=== PATIENT | male | born 1990 | race Caucasian/White ===

== ENCOUNTER 2022-09-02 00:08 | Emergency (ER) | payer OTHER ==
[2022-09-02] MEDS ORDERED: Elimite CREAM TP ONE ×2 (00:23→00:45)
[2022-09-02] MEDS ORDERED: BENADRYL 50 MG/ML IM ONE (00:23)
[2022-09-02 00:28] VITALS: BP 162/88; PULSE 65; O2SAT 98
--- NOTE | 2022-09-02 00:30 | ERPHSYRPT ---
- History of Present Illness Time Seen by Provider: 09/02/22 00:25 Source: patient Exam Limitations: no limitations Physician History: Patient is a 32-year-old white male recently released apparently today from correction in [facility] where he was being treated for scabies. He apparently was on permethrin and ivermectin. He also received Benadryl and steroids for the itching. He was informed that we could probably give him permethrin and Benadryl but we did not have ivermectin in the hospital. We will also give him some prednisone for symptomatic relief. Timing/Duration: day(s) (Several days while in correction. ) Quality: itchy Severity: severe Location: torso, hands, extremities Possible Causes: other (Suspected scabies) Modifying Factors: Improves With: antihistamine, scratching - Review of Systems Constitutional: No Fever, No Chills Eyes: No Symptoms Ears, Nose, & Throat: No Symptoms Respiratory: No Cough, No Dyspnea Cardiac: No Chest Pain, No Edema, No Syncope Abdominal/Gastrointestinal: No Abdominal Pain, No Nausea, No Vomiting, No Diarrhea Genitourinary Symptoms: No Dysuria Musculoskeletal: No Back Pain, No Neck Pain Skin: Pruritis, Skin Lesions, No Rash Neurological: No Dizziness, No Focal Weakness, No Sensory Changes Psychological: No Symptoms Endocrine: No Symptoms All Other Systems: Reviewed and Negative - Physical Exam General Appearance: mild distress Eye Exam: PERRL/EOMI, eyes nml inspection Ears, Nose, Throat Exam: normal ENT inspection, pharynx normal, moist mucous membranes Neck Exam: normal inspection, non-tender, supple, full range of motion Respiratory Exam: normal breath sounds, lungs clear, No respiratory distress Cardiovascular Exam: regular rate/rhythm, normal heart sounds Gastrointestinal/Abdomen Exam: soft, mass, No tenderness Back Exam: rash Extremity Exam: other (Rash) Neurologic Exam: alert, oriented x 3, cooperative, normal mood/affect, sensation nml, No motor deficits Skin Exam: rash, abrasion, other (Excoriations) SpO2 Interpretation: normal O2 Delivery: Room Air - Course Nursing assessment & vital signs reviewed: Yes - Progress Progress: unchanged - Departure Departure Disposition: Home Clinical Impression: Scabies Condition: Stable Critical Care Time: No Referrals: FORREST COSME MD [Primary Care Provider] - Follow up/PCP as directed Instructions: Scabies (DC) Prescriptions: Permethrin Cream [Elimite CREAM] 60 gm TP DIRECTIONS UNKNOWN #1 tu Ivermectin 3 mg PO DAILY #5 tablet
[2022-09-02] MEDS ORDERED: BENADRYL 50 MG/ML ONE (00:34)
[2022-09-02] MEDS ORDERED: DELTASONE 20 MG ONE (00:39)
[2022-09-02] MEDS ORDERED: DELTASONE 20 MG PO SCH (10:00)
== END 2022-09-02 01:07 | disposition home or self-care (01) ==
LOC: ED 00:08
DX: B86 Scabies (principal)
CPT/HCPCS: 96372; 99283; J1200; A9270-GY